=== PATIENT | female | born 1985 | race American Indian/Alaskan Native ===

== ENCOUNTER 2018-03-03 07:14 | Outpatient (CLI) | payer MEDICAID ==
[2018-03-03 08:10] LABS: Blood Urea Nitrogen 9 mg/dL (7-17)
--- NOTE | 2018-03-03 11:51 | Magnetic Resonance Report ---
MRI PELVIS WITH AND WITHOUT CONTRAST INDICATION: Malignant neoplasm of endocervix. COMPARISON: None similar at this institution. FINDINGS: Multiplanar and multisequence MRI of the pelvis performed before and after MultiHance intravenously. Uterus surgically absent with ventral wall postsurgical changes. Multiple bilateral gluteal calcified injection granulomas. Slight proximal sigmoid diverticulosis. Otherwise unremarkable bowel, marrow and muscle signal. No significant pelvic free fluid or adenopathy. No definite T2 hyperintense or an exophytic mass in the region of the cervix noted, to the extent assessed. No definite abnormal enhancement in this region as well, in light of which subtle asymmetric signal in the right parametrium anteriorly as on axial series 5, images 21-23 remains of uncertain/doubtful clinical significance. CONCLUSION: No MRI identification of definite endocervical mass in this patient with prior hysterectomy and possible slight sigmoid diverticulosis, as described. Please correlate. Thank you for the opportunity to participate in this patient's care.
== END 2018-03-03 07:15 | disposition home or self-care (01) ==
LOC: MRI 07:14
PROVIDERS: ATTEND Radiology Radiation Oncology
DX: C53.0 Malignant neoplasm of endocervix (principal)
CPT/HCPCS: 36415; 72197; 82565; 84520; A9577

== ENCOUNTER 2018-12-18 16:35 | Emergency (ER) | payer MEDICAID ==
--- NOTE | 2018-12-18 16:57 | Emergency Department Report ---
Blank Doc - Documentation Documentation: This is a 33-year-old female that presents with abdominal pain, n/v and fever. This initial assessment/diagnostic orders/clinical plan/treatment(s) is/are subject to change based on patient's health status, clinical progression and re- assessment by fellow clinical providers in the ED. Further treatment and workup at subsequent clinical providers discretion. Patient/guardians urged not to elope from the ED as their condition may be serious if not clinically assessed and managed. Initial orders include: 1- Patient sent to [facility] for further evaluation and treatment 2- labs 3- UA
[2018-12-18 17:31] LABS: Basophils % (Auto) 0.3 % (0.0-1.8); Eosinophils % (Auto) 0.2 % (0.0-4.3); Hematocrit 37.1 % (30.3-42.9); Hemoglobin 12.4 gm/dl (10.1-14.3); Lymphocytes # (Auto) 0.9 K/mm3 (1.2-5.4); Lymphocytes % (Auto) 14.8 % (13.4-35.0); Mean Corpuscular HGB Conc 34 % (30-34); Mean Corpuscular Volume 95 fl (79-97); Monocytes # (Auto) 0.4 K/mm3 (0.0-0.8); Monocytes % (Auto) 6.5 % (0.0-7.3); Platelet Count 264 K/mm3 (140-440); Red Cell Distribution Width 13.6 % (13.2-15.2)
[2018-12-18 18:07] LABS: Bacteria,Urine 1+ /HPF (Negative); Bilirubin,Urine NEG (Negative); Blood,Urine MOD (Negative); Color,Urine Yellow (Yellow); Mucus,Urine FEW /HPF; Protein,Urine <15 mg/dL mg/dL (Negative); Urobilinogen,Urine < 2.0 mg/dL (<2.0)
[2018-12-18 18:14] LABS: Alanine Aminotransferase 16 units/L (7-56); Albumin 4.1 g/dL (3.9-5); BUN/Creatinine Ratio 13; Blood Urea Nitrogen 12 mg/dL (7-17); Calcium 9.3 mg/dL (8.4-10.2); Hemolysis Index 2
[2018-12-18] MEDS ORDERED: MORPHINE IV ONE (19:46)
[2018-12-18] MEDS ORDERED: ZOFRAN IV ONE (19:46)
[2018-12-18] MEDS ORDERED: NACL 0.9% 1000 ML 1,000 ML IV ONE (19:46)
--- NOTE | 2018-12-18 20:45 | XRay Report ---
CHEST PA AND LATERAL VIEWS INDICATION: fever, cough. COMPARISON: None FINDINGS: Support devices: None Heart: Normal Lungs/Pleura: No acute pulmonary or pleural findings. IMPRESSION: 1. No significant abnormality. Signer Name: Fadi Crenshaw MD Signed: 12/18/2018 8:41 PM Workstation Name: [id number]
[2018-12-18] MEDS ORDERED: BENADRYL ONE (21:16)
[2018-12-18] MEDS ORDERED: ROCEPHIN/NS 1 GM/50 ML 1 GM/50 ML BAG IV ONE ×2 (21:49→21:58)
[2018-12-18] MEDS ORDERED: BENADRYL IV ONE (22:04)
--- NOTE | 2018-12-19 00:55 | Emergency Department Report ---
ED Abdominal Pain HPI - General Chief Complaint: Abdominal Pain Stated Complaint: FEVER/HBP/ABD PAIN Time Seen by Provider: 12/18/18 16:56 Source: patient Mode of arrival: Ambulatory Limitations: No Limitations - History of Present Illness Initial Comments: Patient is a 33-year-old, female with a history of cervical cancer in remission who presents to the ED with complaint of acute onset persistent severe suprapubic pain with dysuria, urinary frequency and urgency, hematuria, diffuse body aches and pains, fever, chills, nausea, vomiting, headache and generalized weakness and lack of appetite for the last 2 days. Patient denies dyspareunia, vaginal discharge, diarrhea, chest pain, shortness of breath, cough, nasal and sinus congestion, sore throat, dizziness, low back pain and vaginal bleeding. Patient states that she has been taking [id number] medication with no relief. MD Complaint: abdominal pain, other (headache; diffuse body aches and pain; fever and chills; nausea and vomiting) -: Sudden, days(s) (2) Location: suprapubic Radiation: none Migration to: no migration Severity: severe Severity scale (0 -10): 8 Quality: cramping, aching, sharp Consistency: constant Improves With: nothing Worsens With: nothing Associated Symptoms: denies other symptoms, nausea, vomiting, fever, chills. denies: diarrhea, constipation, dysuria, hematemesis, hematochezia, melena, other - Related Data Previous Rx's Medication Instructions Recorded Last Taken Type Ibuprofen [Motrin] 600 mg PO Q8H PRN #20 tablet 12/19/18 Unknown Rx Ondansetron [Zofran Odt] 4 mg PO Q6HR PRN #15 tab.rapdis 12/19/18 Unknown Rx levoFLOXacin [Levaquin TAB] 500 mg PO QDAY #10 tablet 12/19/18 Unknown Rx traMADol [Ultram] 50 mg PO Q6HR PRN #15 tablet 12/19/18 Unknown Rx Allergies Allergy/AdvReac Type Severity Reaction Status Date / Time No Known Allergies Allergy Verified 12/18/18 17:00 ED Review of Systems ROS: Stated complaint: FEVER/HBP/ABD PAIN Other details as noted in HPI Constitutional: chills, fever, malaise Eyes: denies: eye pain, eye discharge, vision change ENT: denies: ear pain, throat pain Respiratory: denies: cough, shortness of breath, wheezing Cardiovascular: denies: chest pain, palpitations Endocrine: no symptoms reported Gastrointestinal: abdominal pain, nausea, vomiting. denies: diarrhea Genitourinary: urgency, dysuria, frequency. denies: discharge Musculoskeletal: arthralgia, myalgia. denies: back pain, joint swelling Skin: denies: rash, lesions Neurological: headache. denies: weakness, paresthesias Psychiatric: denies: anxiety, depression Hematological/Lymphatic: denies: easy bleeding, easy bruising ED Past Medical Hx - Past Medical History Previous Medical History?: Yes Hx Hypertension: Yes Additional medical history: cervical CA - Surgical History Past Surgical History?: No - Social History Smoking Status: Never Smoker - Medications Home Medications: Home Medications Medication Instructions Recorded Confirmed Last Taken Type Ibuprofen [Motrin] 600 mg PO Q8H PRN #20 tablet 12/19/18 Unknown Rx Ondansetron [Zofran Odt] 4 mg PO Q6HR PRN #15 tab.rapdis 12/19/18 Unknown Rx levoFLOXacin [Levaquin TAB] 500 mg PO QDAY #10 tablet 12/19/18 Unknown Rx traMADol [Ultram] 50 mg PO Q6HR PRN #15 tablet 12/19/18 Unknown Rx ED Physical Exam - General Limitations: No Limitations General appearance: alert, in no apparent distress - Head Head exam: Present: atraumatic, normocephalic, normal inspection - Eye Eye exam: Present: normal appearance, PERRL, EOMI. Absent: scleral icterus, nystagmus, periorbital swelling, periorbital tenderness Pupils: Present: normal accommodation - ENT ENT exam: Present: normal exam, normal orophraynx, mucous membranes moist, TM's normal bilaterally, normal external ear exam - Neck Neck exam: Present: normal inspection, full ROM. Absent: tenderness, meningismus, lymphadenopathy, thyromegaly - Respiratory Respiratory exam: Present: normal lung sounds bilaterally. Absent: respiratory distress, wheezes, rales, rhonchi, chest wall tenderness, accessory muscle use, prolonged expiratory - Cardiovascular Cardiovascular Exam: Present: normal rhythm, tachycardia, normal heart sounds. Absent: systolic murmur, diastolic murmur, rubs, gallop - GI/Abdominal GI/Abdominal exam: Present: soft, tenderness (palpable suprapubic tenderness, no guarding or rebound), normal bowel sounds. Absent: guarding, rebound, hyperactive bowel sounds, hypoactive bowel sounds, organomegaly, mass, bruit - Rectal Rectal exam: Present: deferred - Extremities Exam Extremities exam: Present: normal inspection, full ROM, normal capillary refill - Back Exam Back exam: Present: normal inspection, full ROM. Absent: tenderness, CVA tenderness (R), CVA tenderness (L), muscle spasm, paraspinal tenderness, vertebral tenderness - Neurological Exam Neurological exam: Present: alert, oriented X3, CN II-XII intact, normal gait, reflexes normal - Psychiatric Psychiatric exam: Present: normal affect, normal mood - Skin Skin exam: Present: warm, dry, intact, normal color. Absent: rash ED Course Vital Signs 12/18/18 12/19/18 16:56 01:28 Temperature 100.1 F H 99.4 F Pulse Rate 105 H 88 Respiratory 16 Rate Blood Pressure 165/111 Blood Pressure 141/91 [Left] O2 Sat by Pulse 99 Oximetry - Reevaluation(s) Reevaluation #1: 12/19/18 00:55 This is a 33-year-old female who presented to the ED with dysuria, urinary frequency and urgency, fever, chills, suprapubic pain with nausea and vomiting for the last 2 days. In the ED, patient is alert and oriented 3, anxious, febrile and tachycardic but in no acute distress, and appears to be in pain. Lab test results were reviewed and are unremarkable except for urinalysis that shows hematuria and significant urinary tract infection. Patient was treated in the ED with normal saline IV 1 L bolus, pain medications and antiemetics and also given Rocephin 1 g IV [address]. [address]dominopelvic CT scan with contrast shows lung bases which are clear, Levaquin, gallbladder, spleen, pancreas, kidneys, and adrenals are all negative. The abdominal output is normal in size. There is no adenopathy. There is mostly collapse but the bladder wall appears to be quite thickened. There is no free fluid. The uterus is absent. Cecum is slow in the pelvis, and the appendix cannot be identified. There is no pericecal inflamm atory change. Chest x-ray shows no acute cardiopulmonary abnormalities. On reevaluation, patient symptoms have resolved, pain is well controlled and the tachycardia has also resolved. Patient felt better and was discharged home on antibiotics, antiemetics and pain medications and was advised to follow-up with her [facility] physician or primary care physician in 3-5 days for reevaluation or return to the ED immediately if symptoms get worse. 12/19/18 06:49 ED Medical Decision Making - Lab Data Result diagrams: 12/18/18 17:12 12/18/18 17:12 - Radiology Data Radiology results: report reviewed, image reviewed Abdomen pelvic CT scan with contrast shows lung bases which are clear, Levaquin, gallbladder, spleen, pancreas, kidneys, and adrenals are all negative. The abdominal output is normal in size. There is no adenopathy. There is mostly collapse but the bladder wall appears to be quite thickened. There is no free fluid. The uterus is absent. Cecum is slow in the pelvis, and the appendix cannot be identified. There is no pericecal inflammatory change. Chest x-ray shows no acute cardiopulmonary abnormalities. - Medical Decision Making This is a 33-year-old female who presented to the ED with dysuria, urinary frequency and urgency, fever, chills, suprapubic pain with nausea and vomiting for the last 2 days. In the ED, patient is alert and oriented 3, anxious, febrile and tachycardic but in no acute distress, and appears to be in pain. Lab test results were reviewed and are unremarkable except for urinalysis that shows hematuria and significant urinary tract infection. Patient was treated in the ED with normal saline IV 1 L bolus, pain medications and antiemetics and also given Rocephin 1 g IV 1. Abdominopelvic CT scan with contrast shows lung bases which are clear, Levaquin, gallbladder, spleen, pancreas, kidneys, and adrenals are all negative. The abdominal output is normal in size. There is no adenopathy. There is mostly collapse but the bladder wall appears to be quite thickened. There is no free fluid. The uterus is absent. Cecum is slow in the pelvis, and the appendix cannot be identified. There is no pericecal inflammatory change. Chest x-ray shows no acute cardiopulmonary abnormalities. On reevaluation, patient symptoms have resolved, pain is well controlled and the tachycardia has also resolved. Patient felt better and was discharged home on antibiotics, antiemetics and pain medications and was advised to follow-up with her [facility] physician or primary care physician in 3-5 days for reevaluation or return to the ED immediately if symptoms get worse. - Differential Diagnosis abdominal pain, fever, acute UTI; Colitis, pneumonia, sinusitis Critical care attestation.: If time is entered above; I have spent that time in minutes in the direct care of this critically ill patient, excluding procedure time. ED Disposition Clinical Impression: Fever and chills, Acute urinary tract infection, Nausea and vomiting in adult Abdominal pain Qualifiers: Abdominal location: lower abdomen, unspecified Qualified Code(s): R10.30 - Lower abdominal pain, unspecified Disposition: TO HOME OR SELFCARE Is pt being admited?: No Does the pt Need Aspirin: No Condition: Stable Instructions: Urinary Tract Infection in Women (ED), Fever in Adults (ED), Acute Nausea and Vomiting (ED), Abdominal Pain (ED) Additional Instructions: Take medications with food, drink plenty of fluids and follow-up with your primary care physician or [facility] physician in 3-5 days for reevaluation. Return to the ED immediately if symptoms get worse. Prescriptions: levoFLOXacin [Levaquin TAB] 500 mg PO QDAY #10 tablet Ibuprofen [Motrin] 600 mg PO Q8H PRN #20 tablet PRN Reason: Pain traMADol [Ultram] 50 mg PO Q6HR PRN #15 tablet PRN Reason: Pain Ondansetron [Zofran Odt] 4 mg PO Q6HR PRN #15 tab.rapdis PRN Reason: Nausea Referrals: SARAH CORONA MD [Primary Care Provider] - 3-5 Days Time of Disposition: : Print Language: KHMER
[2018-12-19 01:29] VITALS: BP 141/91
--- NOTE | 2018-12-19 10:05 | Cat Scan Report ---
CT abdomen pelvis w con INDICATION: abdominal pain. TECHNIQUE: All CT scans at this location are performed using CT dose reduction for ALARA by means of automated e xposure control. COMPARISON: None available. FINDINGS: Lung bases are clear. Liver, gallbladder, spleen, pancreas, kidneys and adrenals are negative. Abdomi nal aorta is normal in size. No adenopathy. Pelvis Urinary bladder is mostly collapsed, but the bladder wall appears quite thickened. No free fluid. [place] is absent. Cecum is low in the pelvis, and the appendix cannot be identified. No pericecal inflam matory change. IMPRESSION: 1. No significant abnormality. Signer Name: Fadi Crenshaw MD Signed: 12/18/2018 11:04 PM Workstation Name: [id number]
== END 2018-12-19 01:28 | disposition home or self-care (01) ==
LOC: ED 16:35
DX: N39.0 Urinary tract infection, site not specified (principal); R11.2 Nausea with vomiting, unspecified; I10 Essential (primary) hypertension; Z79.899 Other long term (current) drug therapy
CPT/HCPCS: 36415; 71046; 74177; 80053; 81001; 82140; 83690; 85025; 87040; 87086; 96361; 96365; 96375; 99284; J0696; J1200; J2270; J2405; J7030; Q9967